=== PATIENT | female | born 1970 | race Caucasian/White ===

== ENCOUNTER 2021-03-22 16:43 | Emergency (ER) | payer BC ==
[~2021-03-22] VITALS: Ht 175.3 cm; Wt 79.4 kg
[2021-03-22] MEDS ORDERED: ASPIRIN500 MG PO (17:27)
[2021-03-22] MEDS ORDERED: TYLOPHEN500 MG PO (17:28)
[2021-03-22] MEDS ORDERED: VITAMIN D310 MC1 PO (17:28)
[2021-03-22] MEDS ORDERED: ZOFRAN4 MG PO (22:46)
== END 2021-03-23 01:03 | disposition home or self-care (01) ==
LOC: ED 16:43
DX: U07.1 COVID-19 (principal); Z23 Encounter for immunization; Z79.899 Other long term (current) drug therapy; Z79.82 Long term (current) use of aspirin
CPT/HCPCS: 99283-25; A9270; M0243; Q0244